=== PATIENT | female | born 1985 | race Caucasian/White ===

== ENCOUNTER 2022-08-22 18:58 | Inpatient (IN) | payer OTHER ==
[~2022-08-22] VITALS: Ht 154.9 cm; Wt 56.8 kg
[2022-08-22 19:09] VITALS: BP 119/77
--- NOTE | 2022-08-22 19:35 | NUR ---
Patient lying in bed, A/Ox4, chest rise and fall symmetrical, patient on monitor. Addendum: 08/22/22 at 2210 by [email or web address] Patient lying in bed, A/Ox4, chest rise and fall symmetrical, patient on monitor. Patient stated pain is 3/10. Patient asked if patient would like the physician called to request pain medication. Patient declined call to physician to request pain medication. Patient states pain is currently "tolerable."
[2022-08-22 19:48] LABS: BASOPHILS % (AUTO) 0.3 % (0.0-2.0); EOSINOPHILS # (AUTO) 0.1 K/uL (0-0.4); EOSINOPHILS % (AUTO) 0.8 % (0.0-4.0); HEMATOCRIT 34.8 % (36-48); LYMPHOCYTES # (AUTO) 2.2 K/uL (2.5-16.5); LYMPHOCYTES % (AUTO) 24.8 % (20.5-51.1); MEAN CORPUSCULAR HEMOGLOBIN 30 pg (27-31); MEAN CORPUSCULAR HGB CONC 35 g/dL (33-37); MEAN CORPUSCULAR VOLUME 85.9 fL (80-94); MONOCYTES # (AUTO) 0.8 K/uL (0.8-1.0); MONOCYTES % (AUTO) 9.2 % (1.7-9.3); NEUTROPHILS # (AUTO) 5.8 K/uL (1.8-7.7); NEUTROPHILS % (AUTO) 64.9 % (42.2-75.2); PLATELET COUNT (AUTO) 182 K/uL (140-450); RED BLOOD CELL COUNT(AUTO) 4.06 MIL/uL (4.20-5.40)
[2022-08-22 20:07] LABS: ALBUMIN 3.1 g/dL (3.4-5.0); ANION GAP 13.1 (8-16); CARBON DIOXIDE 26.8 mmol/L (21-32); CREATININE 0.7 mg/dL (0.6-1.3); POTASSIUM 3.9 mmol/L (3.5-5.1); TOTAL BILIRUBIN 0.1 mg/dL (0.0-1.0)
--- NOTE | 2022-08-22 20:10 | NUR ---
Patient lying in bed, A/Ox4, chest rise and fall symmetrical, patient on monitor. Addendum: 08/22/22 at 2211 by [email or web address] Patient lying in bed, A/Ox4, chest rise and fall symmetrical, patient on monitor. Patient stated pain is 3/10. Patient asked if patient would like the physician called to request pain medication. Patient declined call to physician to request pain medication. Patient states pain is currently "tolerable."
--- NOTE | 2022-08-22 21:34 | NUR ---
Patient lying in bed, A/Ox4, chest rise and fall symmetrical, patient on monitor. Patient admitted under service of Dr. Nelson. Addendum: 08/22/22 at 2212 by [email or web address] Patient lying in bed, A/Ox4, chest rise and fall symmetrical, patient on monitor. Patient stated pain is 3/10. Patient asked if patient would like the physician called to request pain medication. Patient declined call to physician to request pain medication. Patient states pain is currently "tolerable." Patient admitted under service of Dr. Nelson.
--- NOTE | 2022-08-22 21:56 | NUR ---
Note undone in EDM - 08/22/22 at 2216 by [email or web address] Patient will be admitted to care of Dr. Nelson. Admited to L&D. Will go to room 212. Belongings list completed. Report to L&D nurse. Addendum: 08/22/22 at 2214 by [email or web address] Amendment undone in ED - 08/22/22 at 2216 by [email or web address] Patient will be admitted to care of Dr. Nelson. Admited to L&D. Will go to room 212. Belongings list completed. Report to L&D nurse Velasquez.
--- NOTE | 2022-08-22 21:57 | NUR ---
Patient will be admitted to care of Dr. Nelson. Admited to L&D. Will go to room 212. Belongings list completed. Report to L&D nurse Eva. L&D nurse Eva verbalized understanding of report, no further questions. Patient safely transferred to Bed 212 in L&D department. Addendum: 08/22/22 at 2216 by [id number] Patient will be admitted to care of Dr. Nelson. Admited to L&D. Will go to room 212. Belongings list completed. Report to L&D nurse Velasquez. L&D nurse Velasquez verbalized understanding of report, no further questions. Patient safely transferred to Bed 212 in L&D department. All of patient's belongings at bedside. Patient states pain "01/05, tolerable."
[2022-08-22] MEDS ORDERED: CARBOPROST 250 MCG/ML AMP IM PRN (22:20)
[2022-08-22] MEDS ORDERED: METHYLERGONOVINE 0.2 MG/ML AMP IM PRN (22:20)
[2022-08-22] MEDS ORDERED: MORPHINE SULFATE 5 MG/ML VIAL IVP PRN (22:20)
[2022-08-22] MEDS ORDERED: OXYTOCIN 20 UNITS in LACTATED RINGERS 1,000 ML IV SCH (22:20)
[2022-08-22 22:50] LABS: PROTHROMBIN TIME 8.7 secs (10.8-13.4)
[2022-08-22] MEDS: LACTATED RINGERS 1,000 ML IV SCH (23:00)
[2022-08-22] MEDS: MISOPROSTOL 100 MCG TAB PO SCH (23:20)
[2022-08-22] MEDS: diphenhydrAMINE 50 MG/ML VIAL IVP PRN (23:31)
[2022-08-23 00:44] VITALS: BP 110/56
[2022-08-23] MEDS: MISOPROSTOL 100 MCG TAB PO SCH ×4 (03:31→16:18)
[2022-08-23] MEDS: diphenhydrAMINE 50 MG/ML VIAL IVP PRN (05:36)
[2022-08-23] MEDS: LACTATED RINGERS 1,000 ML IV SCH ×3 (08:11→21:32)
--- NOTE | 2022-08-23 10:00 | NUR ---
DC PLANNING [facility] MET WITH PT AT BEDSIDE FOR DEMISE OF 13.6 WEEKS. PATIENT REPORTS THAT RECENT LOSS IS A FIRST . PT REPORTS ADDRESS ON FILE IS FAMILY ADDRESS AND REPORTS SHE IS A MEDICAL STUDENT AND IS OFTEN ON ROTATION. PATIENT REPORTS SHE HAS BEEN IN [place] ON MEDICAL ROTATION SINE JANUARY 23 AND WILL SOON BE OFF ON ANOTHER ASSIGNMENT FOR MEDICAL ROTATION. PATIENT REPORTS BEING FOLLOWED BY DR TAI. PATIENT REPORTS ADEQUATE FRIENDS SUPPORT AND REPORTS FAMILY WAS UNAWARE OF . PATIENT ACCEPTED BEREAVEMENT RESOURCES OFFERED BY [facility]. [facility] INQUIRED ON ADDITIONAL RESOURCES NEEDED, PATIENT REQUESTING MENTAL HEALTH RESOURCES. MENTAL HEALTH RESOURCES PROVIDED TO PT. PT APPEARS TO BE GRIEVING APPROPRIATELY AND IS RESTING.
--- NOTE | 2022-08-23 13:46 | NUR ---
PATIENT HAS BEEN SCREENED AND CATEGORIZED LOW NUTRITION RISK. PATIENT WILL BE SEEN WITHIN 7 DAYS OF ADMISSION. 08/29/22 REVIEWED BY [address]A V[address]
[2022-08-23] MEDS ORDERED: MISOPROSTOL 200 MCG TAB PO SCH (20:00)
[2022-08-23] MEDS: MISOPROSTOL 200 MCG TAB VG SCH (20:11)
[2022-08-24] MEDS ORDERED: MORPHINE SULFATE 10 MG/ML VIAL ONE ×2 (00:17→23:45)
[2022-08-24] MEDS: diphenhydrAMINE 50 MG/ML VIAL IVP PRN ×2 (00:22→23:38)
[2022-08-24] MEDS: ONDANSETRON 4 MG/2 ML VIAL IVP PRN ×2 (00:22→23:58)
[2022-08-24] MEDS: MISOPROSTOL 200 MCG TAB VG SCH ×2 (00:23→04:12)
[2022-08-24] MEDS: LACTATED RINGERS 1,000 ML IV SCH ×4 (04:22→16:10)
[2022-08-24] MEDS ORDERED: OXYTOCIN 20 UNITS/LR PREMIX 1,000 ML IV ONE (08:22)
[2022-08-25] MEDS: LACTATED RINGERS 1,000 ML IV SCH ×3 (00:53→18:36)
[2022-08-25] MEDS ORDERED: OXYTOCIN 20 UNITS/LR PREMIX 1,000 ML IV ONE (04:37)
[2022-08-25] MEDS ORDERED: MISOPROSTOL 200 MCG TAB ONE ×2 (19:15→22:15)
[2022-08-25] MEDS ORDERED: MISOPROSTOL 100 MCG TAB VG PRN (19:30)
[2022-08-25] MEDS ORDERED: MORPHINE SULFATE 10 MG/ML VIAL ONE (22:19)
[2022-08-25] MEDS: diphenhydrAMINE 50 MG/ML VIAL IVP PRN (23:01)
[2022-08-25] MEDS: ONDANSETRON 4 MG/2 ML VIAL IVP PRN (23:05)
[2022-08-26] MEDS ORDERED: MORPHINE SULFATE 10 MG/ML VIAL ONE ×2 (03:23→05:11)
[2022-08-26] MEDS ORDERED: MORPHINE SULFATE 5 MG/ML VIAL IVP PRN (03:40)
[2022-08-26 05:21] VITALS: BP 112/65
[2022-08-26] MEDS: LACTATED RINGERS 1,000 ML IV SCH ×2 (05:22→08:16)
[2022-08-26] MEDS ORDERED: OXYTOCIN 20 UNITS/LR PREMIX 1,000 ML IV ONE (05:25)
[2022-08-26] MEDS ORDERED: ACETAMINOPHEN 325 MG TAB ONE (11:00)
[2022-08-26] MEDS ORDERED: ACETAMINOPHEN 325 MG TAB PO SCH (11:14)
[2022-08-26 11:46] LABS: BASOPHILS # (AUTO) 0.1 K/uL (0.00-0.22); BASOPHILS % (AUTO) 0.4 % (0.0-2.0); EOSINOPHILS % (AUTO) 0.4 % (0.0-4.0); HEMATOCRIT 28.6 % (36-48); HEMOGLOBIN 9.9 g/dL (12.0-16.0); LYMPHOCYTES # (AUTO) 1.5 K/uL (2.5-16.5); LYMPHOCYTES % (AUTO) 12.7 % (20.5-51.1); MEAN CORPUSCULAR HEMOGLOBIN 29 pg (27-31); MEAN CORPUSCULAR HGB CONC 35 g/dL (33-37); MEAN CORPUSCULAR VOLUME 85.2 fL (80-94); MONOCYTES # (AUTO) 0.6 K/uL (0.8-1.0); MONOCYTES % (AUTO) 5.1 % (1.7-9.3); NEUTROPHILS # (AUTO) 9.6 K/uL (1.8-7.7); NEUTROPHILS % (AUTO) 81.4 % (42.2-75.2); PLATELET COUNT (AUTO) 120 K/uL (140-450); RED BLOOD CELL COUNT(AUTO) 3.36 MIL/uL (4.20-5.40); RED CELL DISTRIBUTION WIDTH 13.2 % (11.6-13.7); WHITE BLOOD COUNT (AUTO) 11.8 K/uL (4.8-10.8)
== END 2022-08-26 12:32 | disposition home or self-care (01) | DRG 833 ==
LOC: MED 18:58 → EEVIPCON 18:58 → MFCC 20:38
PROVIDERS: ADMIT Obstetrics & Gynecology; ATTEND Obstetrics & Gynecology
DX: O36.4XX0 Maternal care for intrauterine death, not applicable or unspecified (principal); Z3A.14 14 weeks gestation of pregnancy; Z20.822 Contact with and (suspected) exposure to COVID-19
CPT/HCPCS: 36415; 59200; 59409; 80053; 81025; 85025; 85610; 85730; 86886; 86900; 86901; 99285; J1200; J2270; J2405; J2590; J7120